=== PATIENT | female | born 1950 | race American Indian/Alaskan Native ===

== ENCOUNTER 2016-05-10 12:33 | Emergency (ER) | payer MEDICARE, OTHER ==
[2016-05-10 12:34] VITALS: BMI 35.7
[2016-05-10 12:47] VITALS: RESP 18; TEMP 98; O2SAT 99
[2016-05-10 13:53] LABS: BASO % 0.9 % (0.0-2.0); EOS # 0.1 K/uL (0.0-0.7); EOS % 1.3 % (0.0-4.0); HEMATOCRIT 36.1 % (34.0-47.0); LYMPH # 1.6 K/uL (1.0-4.3); LYMPH % 33.7 % (20.0-40.0); MEAN CELL VOLUME 82.9 fL (81.0-99.0); MEAN CORPUSCULAR HEMOGLOBIN 26.6 pg (27.0-31.0); MEAN CORPUSCULAR HGB CONC 32.1 g/dL (33.0-37.0); MEAN PLATELET VOLUME 7.4 fL (7.2-11.7); MONO # 0.4 K/uL (0.0-0.8); MONO % 7.4 % (0.0-10.0); RED CELL DISTRIBUTION WIDTH 14.5 % (11.5-14.5)
[2016-05-10 13:58] LABS: WHITE BLOOD COUNT 4.8 K/uL (4.8-10.8)
[2016-05-10 14:00] LABS: CHLORIDE 103 mmol/L (98-107)
[2016-05-10 14:01] LABS: POTASSIUM 3.8 mmol/L (3.6-5.2); SODIUM 142 mmol/L (132-148)
[2016-05-10 14:03] LABS: ALKALINE PHOSPHATASE 109 U/L (38-126); ALT/SGPT 56 U/L (9-52); AST/SGOT 31 U/L (14-36); BLOOD UREA NITROGEN 8 mg/dL (7-17); CARBON DIOXIDE 26 mmol/L (22-30); GFR AFRICAN-AMERICAN > 60; TOTAL PROTEIN 7.6 g/dL (6.3-8.3)
[2016-05-10 14:04] LABS: CALCIUM 9.2 mg/dl (8.6-10.4); GLUCOSE,RANDOM 134 mg/dL (65-105)
[2016-05-10 14:24] LABS: RBC URINE < 1 /hpf (0-3); URINE BILIRUBIN NEGATIVE (NEGATIVE); URINE BLOOD NEGATIVE (NEGATIVE); URINE COLOR Yellow (YELLOW); URINE GLUCOSE (UA) 1+ mg/dL (Normal); URINE HYALINE CAST 0-2 /lpf (0-2); URINE KETONE NEGATIVE (NEGATIVE); URINE LEUKOCYTE ESTERASE NEG Leu/uL (Negative); URINE PROTEIN NEGATIVE (NEGATIVE); URINE UROBILINOGEN NORMAL mg/dL (0.2-1.0); WBC URINE 1 /hpf (0-5)
--- NOTE | 2016-05-10 14:34 | RAD ---
PROCEDURE: CHEST RADIOGRAPH, 1 VIEW. Technique: Single view portable semi erect @ 13:35. HISTORY: SOB COMPARISON: 12/14/2014. FINDINGS: LUNGS: Clear. PLEURA: No pneumothorax or pleural fluid seen. CARDIOVASCULAR: No radiographic findings to suggest acute or significant cardiovascular disease. OSSEOUS STRUCTURES: No significant abnormalities. VISUALIZED UPPER ABDOMEN: Normal. OTHER FINDINGS: None. IMPRESSION: No active disease. No acute/significant interval changes.
[2016-05-10 14:51] VITALS: BP 158/84
--- NOTE | 2016-05-10 15:02 | C.PDOC ---
History Of Present Illness 66 year old patient, with a past medical history of colon cancer, colonic polyps , diabetes, and hypertension, presents to the emergency department complaining of elevated blood pressure. Patient states she has been complaint with her medications. She was seen by Dr. Herr last week who did not adjust her medications. Patient denies loss of consciousness, headache, dizziness, numbness , weakness, incontinence, or any other complaints at this time. Time Seen by Provider: 05/10/16 13:25 Chief Complaint (Nursing): High Blood Pressure History Per: Patient History/Exam Limitations: no limitations Onset/Duration Of Symptoms: Days (3) Current Symptoms Are (Timing): Still Present Associated Symptoms: Other Severity: Mild Pain Scale Rating Of: 3 Exacerbating Factor(s): Pos: None Recent travel outside of the [place]: No Past Medical History Reviewed: Historical Data, Nursing Documentation, Vital Signs Vital Signs: Last Vital Signs Temp 98 F 05/10/16 15:13 Pulse 66 05/10/16 15:13 Resp 18 05/10/16 15:13 BP 158/84 H 05/10/16 14:51 Pulse Ox 99 05/10/16 17:48 - Medical History PMH: Arthritis (Knees and Shoulder), Colonic Polyps, Diabetes, HTN, Hypercholesterolemia, Malignancy (Colon CA (currently on chemotherapy)) Surgical History: Appendectomy - [facility] Procedures ENDOSC POLYPECTOMY OF LG INTEST (08/17/14) INSERTION OF TOTALLY IMPLANTABLE VASC ACCESS DEVIC (09/21/14) LAPAROSCOP APPENDECTOMY (06/22/14) LAPAROSCOP LYSIS-PERITONEAL ADHES (08/25/14) LAPAROSCOPIC CECECTOMY (06/22/14) LAPAROSCOPIC RIGHT HEMICOLECTOMY (08/25/14) PERCUTANEOUS ABDOMINAL DRAINAGE (06/22/14) Family History: States: Unknown Family Hx - Social History Hx Tobacco Use: No Hx Alcohol Use: No Hx Substance Use: No - Immunization History Hx Tetanus Toxoid Vaccination: No Hx Influenza Vaccination: No Hx Pneumococcal Vaccination: No Review Of Systems Except As Marked, All Systems Reviewed And Found Negative. Genitourinary: Negative for: Incontinence Neurological: Negative for: Weakness, Numbness, Headache, Dizziness, Other ( loss of consciousness) Physical Exam - Physical Exam Appears: Non-toxic, No Acute Distress Skin: Warm, Dry Head: Atraumatic, Normacephalic Eye(s): bilateral: Normal Inspection, PERRL, EOMI Oral Mucosa: Moist Neck: Normal ROM, Supple Chest: Symmetrical Cardiovascular: Rhythm Regular Respiratory: Normal Breath Sounds, No Rales, No Rhonchi, No Wheezing Gastrointestinal/Abdominal: Soft, No Tenderness Back: Normal Inspection, No CVA Tenderness Extremity: Normal ROM Neurological/Psych: Oriented x3, Normal Speech, Normal Cognition, Normal Motor, Normal Sensation Gait: Steady ED Course And Treatment - Laboratory Results Result Diagrams: 05/10/16 13:48 05/10/16 13:48 Lab Interpretation: Normal (trop neg.) ECG: Interpreted By Me ECG Rhythm: Sinus Rhythm ECG Interpretation: Normal Rate From EC (bpm) O2 Sat by Pulse Oximetry: 99 Pulse Ox Interpretation: Normal - Radiology CXR: Interpreted by Me CXR Interpretation: Yes: No Acute Disease Progress Note: lopressor 100 mg PO Reevaluation Time: 15:05 Reassessment Condition: Improved Medical Decision Making Medical Decision Making: poorly controlled HTN on Losartan 100, Metoprolol 100 BID, amlodipine 10 Better controlled with extra metoprolol 100 PO in ED increased metoprolol to 200 BID and opt f/u in 2 weeks. Disposition Doctor Will See Patient In The: Office Counseled Patient/Family Regarding: Studies Performed, Diagnosis - Disposition Referrals: Mason Herr MD [Medical Doctor] - Disposition: HOME/ ROUTINE Disposition Time: 15:07 Condition: GOOD Additional Instructions: continue your usual HTN meds and INCREASE your lopressor from 100 mg twice a day (8AM and 4PM to 200 mg twice a day (8Am and 4pm) Follow-up w Dr. Scales in 2 weeks to recheck your blood pressure. Prescriptions: Metoprolol Tartrate [Lopressor] 200 mg PO BID #60 tab Instructions: Hypertension (ED) - Clinical Impression Clinical Impression: Hypertension - Scribe Statement The provider has reviewed the documentation as recorded by the Scribe Angie Laguna Provider Attestation: All medical record entries made by the Scribe were at my direction and personally dictated by me. I have reviewed the chart and agree that the record accurately reflects my personal performance of the history, physical exam, medical decision making, and the department course for this patient. I have also personally directed, reviewed, and agree with the discharge instructions and disposition.
--- NOTE | 2016-05-10 15:02 | C.PDOC ---
History Of Present Illness 66 year old patient, with a past medical history of colon cancer, colonic polyps , diabetes, and hypertension, presents to the emergency department complaining of Time Seen by Provider: 05/10/16 13:25 Chief Complaint (Nursing): High Blood Pressure History Per: Patient History/Exam Limitations: no limitations Current Symptoms Are (Timing): Still Present Severity: Mild Pain Scale Rating Of: 3 Recent travel outside of the [place]: No Past Medical History Reviewed: Historical Data, Nursing Documentation, Vital Signs Vital Signs: Last Vital Signs Temp 98 F 05/10/16 12:47 Pulse 64 05/10/16 13:02 Resp 18 05/10/16 13:02 BP 158/84 H 05/10/16 14:51 Pulse Ox 99 05/10/16 12:47 - Medical History PMH: Arthritis (Knees and Shoulder), Colonic Polyps, Diabetes, HTN, Hypercholesterolemia, Malignancy (Colon CA (currently on chemotherapy)) Surgical History: Appendectomy - [facility] Procedures ENDOSC POLYPECTOMY OF LG INTEST (08/17/14) INSERTION OF TOTALLY IMPLANTABLE VASC ACCESS DEVIC (09/21/14) LAPAROSCOP APPENDECTOMY (06/22/14) LAPAROSCOP LYSIS-PERITONEAL ADHES (08/25/14) LAPAROSCOPIC CECECTOMY (06/22/14) LAPAROSCOPIC RIGHT HEMICOLECTOMY (08/25/14) PERCUTANEOUS ABDOMINAL DRAINAGE (06/22/14) Family History: States: Unknown Family Hx - Social History Hx Tobacco Use: No Hx Alcohol Use: No Hx Substance Use: No - Immunization History Hx Tetanus Toxoid Vaccination: No Hx Influenza Vaccination: No Hx Pneumococcal Vaccination: No Review Of Systems Except As Marked, All Systems Reviewed And Found Negative. ED Course And Treatment - Laboratory Results Result Diagrams: 05/10/16 13:48 05/10/16 13:48 O2 Sat by Pulse Oximetry: 99 (RA) Pulse Ox Interpretation: Normal Progress Note: Plan: EKG, Labs, Chest XR, Metoprolol - Scribe Statement The provider has reviewed the documentation as recorded by the Venita Laguna Provider Attestation: All medical record entries made by the Scribe were at my direction and personally dictated by me. I have reviewed the chart and agree that the record accurately reflects my personal performance of the history, physical exam, medical decision making, and the department course for this patient. I have also personally directed, reviewed, and agree with the discharge instructions and disposition.
[2016-05-10 15:14] VITALS: PULSE 66
--- NOTE | 2016-05-12 06:42 | CARD ---
APPROVED REPORT EKG Measurement Heart [id number] <Conclusion> Normal sinus rhythm Nonspecific T wave abnormality Abnormal ECG
== END 2016-05-10 15:22 | disposition home or self-care (01) ==
LOC: C.ER 12:33
DX: I10 Essential (primary) hypertension (principal)

== ENCOUNTER 2017-04-17 11:02 | Emergency (ER) | payer MEDICARE, OTHER ==
[2017-04-17 11:02] VITALS: BMI 35.7
[2017-04-17 11:17] VITALS: O2SAT 99
--- NOTE | 2017-04-17 12:12 | C.PDOC ---
History Of Present Illness 67 yr old female with PMHx of HTN and diabetes, presents to the ER stating her blood pressure was 225/116 this morning. Patient states she is compliant with her HTN medicine. Patient also reports of chronic bilateral pain, states she was told by PMD it is likely due to arthritis. Patient denies fever, chills, SOB , sore throat, nausea, vomiting, abdominal pain, neck pain, back pain, weakness , numbness or headache. Patient blood pressure noted to be lower upon arrival, no headache, no dizziness, no nausea, no vomiting, no visual changes. PMD: Dr. Herr Time Seen by Provider: 04/17/17 11:40 Chief Complaint (Nursing): High Blood Pressure History Per: Patient History/Exam Limitations: no limitations Onset/Duration Of Symptoms: Sudden Onset (since morning) Past Medical History Reviewed: Historical Data, Nursing Documentation, Vital Signs Vital Signs: Last Vital Signs Temp 97.9 F 04/17/17 15:19 Pulse 91 H 04/17/17 15:19 Resp 18 04/17/17 15:19 BP 156/90 H 04/17/17 15:19 Pulse Ox 99 04/19/17 08:47 - Medical History PMH: Arthritis (Knees and Shoulder), Colonic Polyps, Diabetes, HTN, Hypercholesterolemia, Malignancy (Colon CA (currently on chemotherapy)) Surgical History: Appendectomy - [facility] Procedures ENDOSC POLYPECTOMY OF LG INTEST (08/17/14) INSERTION OF TOTALLY IMPLANTABLE VASC ACCESS DEVIC (09/21/14) LAPAROSCOP APPENDECTOMY (06/22/14) LAPAROSCOP LYSIS-PERITONEAL ADHES (08/25/14) LAPAROSCOPIC CECECTOMY (06/22/14) LAPAROSCOPIC RIGHT HEMICOLECTOMY (08/25/14) PERCUTANEOUS ABDOMINAL DRAINAGE (06/22/14) Family History: States: No Known Family Hx - Social History Hx Tobacco Use: No Hx Alcohol Use: No Hx Substance Use: No - Immunization History Hx Tetanus Toxoid Vaccination: No Hx Influenza Vaccination: No Hx Pneumococcal Vaccination: No Review Of Systems Except As Marked, All Systems Reviewed And Found Negative. Constitutional: Negative for: Fever, Chills ENT: Negative for: Throat Pain Respiratory: Negative for: Shortness of Breath Gastrointestinal: Negative for: Nausea, Vomiting, Abdominal Pain Musculoskeletal: Negative for: Neck Pain, Back Pain Neurological: Negative for: Weakness, Numbness, Headache Physical Exam - Physical Exam Appears: Non-toxic, No Acute Distress Skin: Warm, Dry, No Rash Head: Atraumatic, Normacephalic Eye(s): bilateral: Normal Inspection, PERRL, EOMI Oral Mucosa: Moist Neck: Normal, Normal ROM, Supple Cardiovascular: Rhythm Regular, No Murmur Respiratory: Normal Breath Sounds, No Rales, No Rhonchi, No Stridor, No Wheezing Gastrointestinal/Abdominal: Normal Exam, Soft, No Tenderness, No Guarding, No Rebound Extremity: Normal ROM, No Swelling Neurological/Psych: Oriented x3, Normal Speech ED Course And Treatment - Laboratory Results Result Diagrams: 04/17/17 12:27 04/17/17 12:27 ECG: Interpreted By Me, Viewed By Me ECG Rhythm: Sinus Rhythm Interpretation Of ECG: Normal intervals. Normal axis. LVH. Non specific ST wave changes. Rate From EC (BPM) O2 Sat by Pulse Oximetry: 99 (RA) Pulse Ox Interpretation: Normal - Other Rad CXR X-Ray: Viewed By Me, Read By Radiologist Interpretation: HISTORY: chest pain. COMPARISON: Chest x-ray performed . TECHNIQUE: Chest, one view. FINDINGS: Examination limited by habitus. LUNGS: No focal consolidation. Please note that chest x-ray has limited sensitivity for the detection of pulmonary masses. PLEURA: No significant pleural effusion identified. No definite pneumothorax . CARDIOVASCULAR: Heart size appears within normal limits. Atherosclerotic calcifications of the aorta. OSSEOUS STRUCTURES: No acute osseous abnormality identified. VISUALIZED UPPER ABDOMEN: Unremarkable. OTHER FINDINGS: None. IMPRESSION: No focal consolidation identified. Progress Note: Patient is dischagred home and instructed to contince HTN medicine as previosuly prescribed. Medical Decision Making Medical Decision Making: IMPRESSION: HTN PLAN: * CXR * EKG * Labs * Urinalysis Disposition - Disposition Referrals: Mason Herr MD [Medical Doctor] - Disposition: HOME/ ROUTINE Disposition Time: 15:30 Condition: STABLE Additional Instructions: follow up with your doctor in 2 days call to make an appointment take medications as prescribed return to ER if symptoms worsens or progress Instructions: High Blood Pressure (DC) Forms: General Discharge Instructions, [facility] (Polish) - Clinical Impression Clinical Impression: Hypertension - Scribe Statement The provider has reviewed the documentation as recorded by the Scribe Mei Kye Provider Attestation: All medical record entries made by the Scribe were at my direction and personally dictated by me. I have reviewed the chart and agree that the record accurately reflects my personal performance of the history, physical exam, medical decision making, and the department course for this patient. I have also personally directed, reviewed, and agree with the discharge instructions and disposition.
[2017-04-17 12:37] LABS: EOS % 0.5 % (0.0-4.0); HEMOGLOBIN 13.3 g/dL (11.0-16.0); LYMPH # 1.7 K/uL (1.0-4.3); LYMPH % 33.3 % (20.0-40.0); MEAN CELL VOLUME 84.2 fL (81.0-99.0); MEAN CORPUSCULAR HEMOGLOBIN 27.9 pg (27.0-31.0); MEAN CORPUSCULAR HGB CONC 33.2 g/dL (33.0-37.0); MEAN PLATELET VOLUME 7.5 fL (7.2-11.7); MONO # 0.3 K/uL (0.0-0.8); MONO % 5.6 % (0.0-10.0); NEUT % 59.6 % (50.0-75.0); RBC 4.75 Mil/uL (3.80-5.20); RED CELL DISTRIBUTION WIDTH 13.5 % (11.5-14.5)
[2017-04-17 12:46] LABS: SQUAMOUS EPITHIAL < 1 /hpf (0-5); URINE BILIRUBIN NEGATIVE (NEGATIVE); URINE BLOOD NEGATIVE (NEGATIVE); URINE CLARITY Clear (Clear); URINE COLOR Yellow (YELLOW); URINE GLUCOSE (UA) 3+ mg/dL (Normal); URINE LEUKOCYTE ESTERASE NEG Leu/uL (Negative); URINE NITRATE NEGATIVE (NEGATIVE); URINE PROTEIN NEGATIVE (NEGATIVE); URINE UROBILINOGEN NORMAL mg/dL (0.2-1.0)
[2017-04-17 12:55] LABS: ALB/GLOB RATIO 1.2 (1.0-2.1); ALBUMIN 4.3 g/dL (3.5-5.0); ALT/SGPT 52 U/L (9-52); AST/SGOT 41 U/L (14-36); BLOOD UREA NITROGEN 12 mg/dL (7-17); CALCIUM 9.7 mg/dl (8.6-10.4); GFR AFRICAN-AMERICAN > 60; GFR NON-AFRICAN AMERICAN > 60
[2017-04-17 13:05] LABS: B-TYPE NATRIURETIC PEPTIDE 28.6 pg/mL (0-900)
--- NOTE | 2017-04-17 14:21 | RAD ---
HISTORY: chest pain COMPARISON: Chest x-ray performed 05/10/16 TECHNIQUE: Chest, one view. FINDINGS: Examination limited by habitus. LUNGS: No focal consolidation. Please note that chest x-ray has limited sensitivity for the detection of pulmonary masses. PLEURA: No significant pleural effusion identified. No definite pneumothorax . CARDIOVASCULAR: Heart size appears within normal limits. Atherosclerotic calcifications of the aorta. OSSEOUS STRUCTURES: No acute osseous abnormality identified. VISUALIZED UPPER ABDOMEN: Unremarkable. OTHER FINDINGS: None. IMPRESSION: No focal consolidation identified.
[2017-04-17 15:20] VITALS: BP 156/90; PULSE 91; RESP 18; TEMP 97.9
--- NOTE | 2017-04-19 08:56 | CARD ---
APPROVED REPORT EKG Measurement Heart [id number] [place] [id number] <Conclusion> Normal sinus rhythm Minimal voltage criteria for LVH, may be normal variant Nonspecific T wave abnormality Abnormal ECG
== END 2017-04-17 15:45 | disposition home or self-care (01) ==
LOC: C.ER 11:02
DX: I10 Essential (primary) hypertension (principal)

== ENCOUNTER 2017-04-23 03:04 | Emergency (ER) | payer MEDICARE, OTHER ==
[2017-04-23 03:04] VITALS: BMI 35.7
[2017-04-23 03:21] VITALS: RESP 20; O2SAT 99
--- NOTE | 2017-04-23 03:33 | C.PDOC ---
History Of Present Illness 67 year old female with a Hx of HTN presents to the ER with a complaint of feeling weak, lightheaded, and having her blood pressure elevated. Patient states she checked her blood pressure at home and noticed it was 249/149. Patient saw her PMD yesterday who increased her dose of metoprolol to 100 bid, she also takes losartan 100 daily, and norvasc 10 daily. Patient reports her blood pressure is normally 150/70 but states it has not been like that in 3-4 weeks. Denies chest pain, SOB, nausea, or vomiting. Time Seen by Provider: 04/23/17 03:21 Chief Complaint (Nursing): High Blood Pressure History Per: Patient History/Exam Limitations: no limitations Onset/Duration Of Symptoms: Hrs Current Symptoms Are (Timing): Still Present Associated Symptoms: Other (Generalized weakness, Lightheadedness). denies: Chest Pain, Dyspnea, Dizziness, Blurred Vision, Focal Weakness, Headache Quality Of Symptoms: Asymptomatic Recent travel outside of the [place]: No Past Medical History Reviewed: Historical Data, Nursing Documentation, Vital Signs Vital Signs: Last Vital Signs Temp 98.2 F 04/23/17 03:17 Pulse 80 04/23/17 03:34 Resp 20 04/23/17 03:34 BP 181/94 H 04/23/17 03:34 Pulse Ox 99 04/23/17 04:23 - Medical History PMH: Arthritis (Knees and Shoulder), Colonic Polyps, Diabetes, HTN, Hypercholesterolemia, Malignancy (Colon CA (currently on chemotherapy)) Surgical History: Appendectomy - [facility] Procedures ENDOSC POLYPECTOMY OF LG INTEST (08/17/14) INSERTION OF TOTALLY IMPLANTABLE VASC ACCESS DEVIC (09/21/14) LAPAROSCOP APPENDECTOMY (06/22/14) LAPAROSCOP LYSIS-PERITONEAL ADHES (08/25/14) LAPAROSCOPIC CECECTOMY (06/22/14) LAPAROSCOPIC RIGHT HEMICOLECTOMY (08/25/14) PERCUTANEOUS ABDOMINAL DRAINAGE (06/22/14) Family History: States: Unknown Family Hx - Social History Hx Tobacco Use: No Hx Alcohol Use: No Hx Substance Use: No - Immunization History Hx Tetanus Toxoid Vaccination: No Hx Influenza Vaccination: No (allergic) Hx Pneumococcal Vaccination: No Review Of Systems Except As Marked, All Systems Reviewed And Found Negative. Constitutional: Positive for: Weakness Cardiovascular: Positive for: Light Headedness, Other (Elevated BP) Respiratory: Negative for: Shortness of Breath Gastrointestinal: Negative for: Nausea, Vomiting Physical Exam - Physical Exam Appears: Non-toxic, No Acute Distress Skin: Normal Color, Warm, Dry Head: Atraumatic, Normacephalic Eye(s): bilateral: Normal Inspection Oral Mucosa: Moist Neck: Normal, Supple Chest: Symmetrical, No Tenderness Cardiovascular: Rhythm Regular, Other (BP 180/95) Respiratory: Normal Breath Sounds, No Accessory Muscle Use Gastrointestinal/Abdominal: Soft, No Tenderness Neurological/Psych: Oriented x3, Normal Speech ED Course And Treatment - Laboratory Results Result Diagrams: 04/23/17 03:42 03 03:42 ECG: Interpreted By Me ECG Rhythm: Sinus Rhythm ECG Interpretation: Normal Rate From EC O2 Sat by Pulse Oximetry: 99 Pulse Ox Interpretation: Normal Medical Decision Making Medical Decision Making: Plan: * EKG * Blood work Disposition Counseled Patient/Family Regarding: Studies Performed, Diagnosis, Need For Followup - Disposition Referrals: Mason Herr MD [Family Provider] - Disposition: HOME/ ROUTINE Disposition Time: 04:33 Condition: IMPROVED Additional Instructions: TAKE MEDICATIONS PRESCRIBED BY YOUR PMD Instructions: High Blood Pressure in Adults Forms: [facility] (Tunisian) - Clinical Impression Clinical Impression: Hypertension - Scribe Statement The provider has reviewed the documentation as recorded by the Scribe Devyn Ontiveros All medical record entries made by the Scribe were at my direction and personally dictated by me. I have reviewed the chart and agree that the record accurately reflects my personal performance of the history, physical exam, medical decision making, and the department course for this patient. I have also personally directed, reviewed, and agree with the discharge instructions and disposition.
[2017-04-23 03:47] LABS: BASO # 0.1 K/uL (0.0-0.2); EOS # 0.1 K/uL (0.0-0.7); EOS % 1.7 % (0.0-4.0); HEMOGLOBIN 12.9 g/dL (11.0-16.0); LYMPH # 1.9 K/uL (1.0-4.3); LYMPH % 37.6 % (20.0-40.0); MEAN CELL VOLUME 83.5 fL (81.0-99.0); MEAN CORPUSCULAR HEMOGLOBIN 28.1 pg (27.0-31.0); MEAN CORPUSCULAR HGB CONC 33.6 g/dL (33.0-37.0); MEAN PLATELET VOLUME 6.9 fL (7.2-11.7); MONO # 0.4 K/uL (0.0-0.8); MONO % 7.9 % (0.0-10.0); NEUT # 2.5 K/uL (1.8-7.0); NEUT % 50.8 % (50.0-75.0); NRBC % 0.1 % (0.0-2.0); RBC 4.6 Mil/uL (3.80-5.20); RED CELL DISTRIBUTION WIDTH 13.6 % (11.5-14.5); WHITE BLOOD COUNT 4.9 K/uL (4.8-10.8)
[2017-04-23 04:02] LABS: BLOOD UREA NITROGEN 10 mg/dL (7-17); CALCIUM 9.9 mg/dl (8.6-10.4); GFR AFRICAN-AMERICAN > 60; GFR NON-AFRICAN AMERICAN > 60
[2017-04-23 04:42] VITALS: BP 173/108; PULSE 74; TEMP 98.5
--- NOTE | 2017-04-25 11:01 | CARD ---
APPROVED REPORT EKG Measurement Heart [id number] 170P67 [id number] <Conclusion> Normal sinus rhythm Normal ECG
== END 2017-04-23 04:56 | disposition home or self-care (01) ==
LOC: C.ER 03:04 → SUPCPDRO 03:04 → C.ER 04:56
DX: I10 Essential (primary) hypertension (principal); E11.9 Type 2 diabetes mellitus without complications; E78.00 Pure hypercholesterolemia, unspecified

== ENCOUNTER 2018-06-07 02:37 | Emergency (ER) | payer MEDICARE, OTHER ==
[2018-06-07 02:37] VITALS: BMI 35.7
--- NOTE | 2018-06-07 04:08 | C.PDOC ---
History Of Present Illness 68 y/o female comes in to ED complaining of positional vertigo. Patient has history of vertigo when she was younger. She denies headache, vomiting, or fever. Has mild nasal congestion. Denies any other complaints at this time. Time Seen by Provider: 06/07/18 03:04 Chief Complaint (Nursing): Dizziness/Lightheaded History Per: Patient History/Exam Limitations: no limitations Onset/Duration Of Symptoms: Hrs Current Symptoms Are (Timing): Still Present Past Medical History Reviewed: Historical Data, Nursing Documentation, Vital Signs Vital Signs: Last Vital Signs Temp 98.7 F 06/07/18 02:51 Pulse 101 H 06/07/18 02:51 Resp 14 06/07/18 02:51 BP 131/82 06/07/18 02:51 Pulse Ox 99 06/07/18 02:51 - Medical History PMH: Arthritis (Knees and Shoulder), Colonic Polyps, Diabetes, HTN, Hypercholesterolemia, Malignancy (Colon CA (currently on chemotherapy)) Denies: Chronic Kidney Disease Surgical History: Appendectomy - [facility] Procedures ENDOSC POLYPECTOMY OF LG INTEST (08/17/14) INSERTION OF TOTALLY IMPLANTABLE VASC ACCESS DEVIC (09/21/14) LAPAROSCOP APPENDECTOMY (06/22/14) LAPAROSCOP LYSIS-PERITONEAL ADHES (08/25/14) LAPAROSCOPIC CECECTOMY (06/22/14) LAPAROSCOPIC RIGHT HEMICOLECTOMY (08/25/14) PERCUTANEOUS ABDOMINAL DRAINAGE (06/22/14) Family History: States: No Known Family Hx - Social History Hx Tobacco Use: No Hx Alcohol Use: No Hx Substance Use: No - Immunization History Hx Tetanus Toxoid Vaccination: No Hx Influenza Vaccination: No Hx Pneumococcal Vaccination: No Review Of Systems Except As Marked, All Systems Reviewed And Found Negative. Constitutional: Negative for: Fever ENT: Positive for: Other (mild nasal congestion) Gastrointestinal: Negative for: Vomiting Neurological: Positive for: Other (vertigo). Negative for: Headache Physical Exam - Physical Exam Appears: Non-toxic, No Acute Distress Skin: Warm, Dry Head: Atraumatic Eye(s): bilateral: Normal Inspection Nose: Other (moderate to sever nasal congestion) Oral Mucosa: Moist Neck: Supple Cardiovascular: Rhythm Regular, No Murmur Respiratory: Normal Breath Sounds, No Rales, No Rhonchi, No Wheezing Gastrointestinal/Abdominal: Soft, No Tenderness Extremity: Bilateral: Atraumatic Neurological/Psych: Oriented x3, Normal Speech ED Course And Treatment O2 Sat by Pulse Oximetry: 99 (RA) Pulse Ox Interpretation: Normal Medical Decision Making Medical Decision Making: Plan: --Antivert 50 mg PO --Motrin 600 mg PO --[id number] mg PO BPV, h/o same, provoked by nasal congestion prob due to seasonal allergies improved w ED tx Disposition Doctor Will See Patient In The: Office Counseled Patient/Family Regarding: Studies Performed, Diagnosis - Disposition Disposition: HOME/ ROUTINE Disposition Time: 04:08 Condition: GOOD Prescriptions: Meclizine [Meclizine*] 25 mg PO Q6 PRN #30 tab PRN Reason: vertigo Forms: [facility] (Uzbek) - Clinical Impression Clinical Impression: Vertigo, Nasal congestion - Scribe Statement The provider has reviewed the documentation as recorded by the Venita Hanna Provider Attestation: All medical record entries made by the Crescencioibdeana were at my direction and personally dictated by me. I have reviewed the chart and agree that the record accurately reflects my personal performance of the history, physical exam, medical decision making, and the department course for this patient. I have also personally directed, reviewed, and agree with the discharge instructions and disposition.
[2018-06-07 04:28] VITALS: BP 124/76; PULSE 80; RESP 20; TEMP 98.9; O2SAT 98
--- NOTE | 2018-06-08 10:56 | CARD ---
APPROVED REPORT Date of service: 06/07/2018 EKG Measurement Heart [id number] 150P55 [id number] <Conclusion> Normal sinus rhythm Cannot rule out Inferior infarct, age undetermined Abnormal ECG
== END 2018-06-07 04:54 | disposition home or self-care (01) ==
LOC: C.ER 02:37
DX: R42 Dizziness and giddiness (principal); R09.81 Nasal congestion